=== PATIENT | female | born 1950 | race Caucasian/White ===

== ENCOUNTER 2019-02-13 17:13 | Inpatient (IN) | payer MEDICARE ==
[2019-02-14] MEDS: DESYREL PO PRN (01:31)
[2019-02-14 08:20] LABS: Basophils % (Auto) 0.4 % (0.0-1.8); Hematocrit 32.7 % (30.3-42.9); Hemoglobin 11.1 gm/dl (10.1-14.3); Lymphocytes # (Auto) 0.9 K/mm3 (1.2-5.4); Lymphocytes % (Auto) 29.4 % (13.4-35.0); Mean Corpuscular HGB Conc 34 % (30-34); Mean Corpuscular Volume 91 fl (79-97); Monocytes # (Auto) 0.3 K/mm3 (0.0-0.8); Monocytes % (Auto) 9.6 % (0.0-7.3); Platelet Count 177 K/mm3 (140-440); Red Blood Count 3.58 M/mm3 (3.65-5.03); Red Cell Distribution Width 17.8 % (13.2-15.2)
[2019-02-14 08:39] LABS: Alanine Aminotransferase 9 units/L (7-56); BUN/Creatinine Ratio 17; Blood Urea Nitrogen 12 mg/dL (7-17); Calcium 8.7 mg/dL (8.4-10.2); HDL Cholesterol 54 mg/dL (40-59); Hemolysis Index 14; LDL Cholesterol,Direct 14 mg/dL (50-130)
--- NOTE | 2019-02-14 08:51 | History and Physical Report ---
GP History & Physical - History of Present Illness Date of admission: 02/13/19 Date of Examination: 02/14/19 Reason for Admission: Danger to self, Severe anxiety/depression, Unable to care for self Chief Complaint: I took too much of my pain pills History of Present Illness: The patient is a 68yo retired female with history of MDD, Chronic pain, Fibromyalgia, Non-Alcoholic fatty liver disease with cirrhosis, Hepatic hydrothorax and HTN. She was transferred from [facility] for inpatient psychiatric treatment. [place] [facility] [place] secondary to opiate overdose. She was minimally responsive to stimulation and required intubation. In my interview with the patient, she states that she is here to "get my mind together". She admits to have overdosed on her pain pills as she was in so much pain and could no longer continue to live in pain. She reports feeling depressed and she continues to feel suicidal at present time. She has poor sleep. Appetite is average. She is focussed on getting her pain under control. She denies hallucinations, paranoia or homicidal thoughts. She reports taking Celexa for over 10 years and Gabapentin for over 3 years. Legal Status: Voluntary Patient Problems: Current Active Problems Chronic pain syndrome (Acute) Fibromyalgia (Acute) MDD (major depressive disorder), recurrent severe, without psychosis (Acute) Opioid use disorder, severe, dependence (Acute) Reaction to Hospitalization: Accepting Substance History - Substance History Drug Use: opiates, prescription drug abuse Hx Tobacco Use: No Alcohol Use: No Past psychiatric history - Past Medical History Past Medical History: arthritis, hepatitis, hypertension, liver disease - past Psychiatric treatment and history Psych: Depression psychiatric treatment history: No previous suicide attempt, inpatient psych admissions and no established outpatient care. She gets her psych meds from her PCP - Social History Social history: , lives with family, prescription drug abuse, other (Pt completed high school, retired, no legal problems and no access to guns.) Review of Systems All systems: negative Constitutional: weight loss, weakness, lethargy, chronic pain Psychiatric: insomnia, depression Results - Results Labs/Vitals: Laboratory Last Values WBC 3.1 K/mm3 (4.5-11.0) L 02/14/19 07:52 RBC 3.58 M/mm3 (3.65-5.03) L 02/14/19 07:52 Hgb 11.1 gm/dl (10.1-14.3) 02/14/19 07:52 Hct 32.7 % (30.3-42.9) 02/14/19 07:52 MCV 91 fl (79-97) 02/14/19 07:52 MCH 31 pg (28-32) 02/14/19 07:52 MCHC 34 % (30-34) 02/14/19 07:52 RDW 17.8 % (13.2-15.2) H 02/14/19 07:52 Plt Count 177 K/mm3 (140-440) 02/14/19 07:52 Lymph % (Auto) 29.4 % (13.4-35.0) 02/14/19 07:52 [place] % (Auto) 9.6 % (0.0-7.3) H 02/14/19 07:52 Eos % (Auto) 1.0 % (0.0-4.3) 02/14/19 07:52 Baso % (Auto) 0.4 % (0.0-1.8) 02/14/19 07:52 Lymph # 0.9 K/mm3 (1.2-5.4) L 02/14/19 07:52 [place] # 0.3 K/mm3 (0.0-0.8) 02/14/19 07:52 Eos # 0.0 K/mm3 (0.0-0.4) 02/14/19 07:52 Baso # 0.0 K/mm3 (0.0-0.1) 02/14/19 07:52 Seg Neutrophils % 59.6 % (40.0-70.0) 02/14/19 07:52 Seg Neutrophils # 1.8 K/mm3 (1.8-7.7) 02/14/19 07:52 POC Glucose 124 (70-105) H 02/13/19 22:39 Last Vital Signs Temp 98.4 F 02/13/19 22:34 Pulse 68 02/13/19 22:34 Resp 18 02/13/19 22:34 BP 135/51 02/13/19 22:34 Pulse Ox 96 02/13/19 22:34 Physical Examination - Constitutional Vitals: Vital Signs Temp Pulse Resp BP Pulse Ox 98.4 F 68 18 135/51 96 02/13/19 22:34 06/17/19 22:34 02/13/19 22:34 02/13/19 22:34 02/13/19 22:34 Temperature -Last 24 Hours Temperature 98.4 F General appearance: Present: no acute distress - EENT Eyes: Present: PERRL, EOM intact ENT: hearing intact, clear oral mucosa - Neck Neck: Present: supple, normal ROM - Respiratory Respiratory effort: normal Mental Status Exam - Vital signs Last Vital Signs Temp 98.4 F 02/13/19 22:34 Pulse 68 02/13/19 22:34 Resp 18 02/13/19 22:34 BP 135/51 02/13/19 22:34 Pulse Ox 96 02/13/19 22:34 - Exam Orientation: time, place, person Affect: depressed Mood: congruent with affect Thought Process: Intact Perceptions: none Speech: normal rate and pattern Concentration: focused Motor activity: lethargic Level of consciousness: alert Memory: Intact Sleep Symptoms: Insomnia Appetite: decreased Interaction: cooperative Assessment and Plan - Psychiatric problem (1) MDD (major depressive disorder), recurrent severe, without psychosis Current Visit: Yes Status: Acute (2) Opioid use disorder, severe, dependence Current Visit: Yes Status: Acute (3) Fibromyalgia Current Visit: Yes Status: Acute (4) Chronic pain syndrome Current Visit: Yes Status: Acute Physician Certification - Certification Statement Physician Certification Statement: This is an acknowledgement statement that WARREN DHILLON is a 68 year old F who requires inpatient psychiatric admission for treatment which could reasonably be expected to improve the patient's condition for Depression and suicidal thoughts Estimated period of time patient will need to remain in the hospital: 7 days Plan for post-hospital care: Outpatient care Plan Patient will be admitted for inpatient psychiatric evaluation, medication adjustment and close monitoring The patient's behavior, mood, sleep and appetite will be closely monitored. Patient will be enrolled in individual and group therapeutic sessions and encouraged to attend. Patient will be provided with a safe and structured environment. Patient's physical health needs will be addressed by the Hospitalist. Social Assessment will be completed and the Information Assoc will work with patient and family to ensure a suitable and safe disposition Medication adjustment will be made as clinically indicated Will not restart Citalopram. Will replace it with Cymbalta 30mg bid for depression and Fibromyalgia. Will resume Gabapentin at 300mg tid as patient reports benefitting for it Will start Mirtazapine 7.5mg qhs for depression, insomnia and appetite. The patient's son agreed on the treatment plan, understood the risk, benefit, alternative treatment, potential consequence of no treatment, and gave informed consent.
[2019-02-14] MEDS ORDERED: NORCO 10/325 PO PRN (09:15)
[2019-02-14] MEDS: LASIX PO SCH (09:29)
[2019-02-14] MEDS ORDERED: K-DUR PO NR (09:30)
[2019-02-14] MEDS ORDERED: NON-FORMULARY (Lasix Tab 20 MG) PO SCH (10:00)
[2019-02-14] MEDS ORDERED: NON-FORMULARY (Spironolactone 25 MG) PO SCH (10:00)
[2019-02-14] MEDS ORDERED: NON-FORMULARY (Pantoprazole 40 MG) PO SCH (10:00)
[2019-02-14] MEDS: CYMBALTA PO SCH ×2 (11:05→21:25)
[2019-02-14] MEDS: PROTONIX PO SCH (11:05)
[2019-02-14] MEDS: ALDACTONE PO SCH (11:05)
[2019-02-14] MEDS ORDERED: NON-FORMULARY (Baclofen 10 MG) PO SCH (14:00)
--- NOTE | 2019-02-14 14:05 | Consultation ---
History of Present Illness - Reason for Consult Consult date: 02/14/19 Hypertension, chronic liver disease Requesting physician: KOLE ADAMES - History of Present Illness Patient is 68 yo with depression, admitted to [facility]. The hospitalist service has been consulted for management of multiple medical co-morbidities. Patient has hypertension, chronic liver disease, cirrhosis. She is on multiple medications. She currently denies chest pain, shortness of breath or abdominal pain. Past History Past Medical History: arthritis, hepatitis, hypertension, liver disease, other (cirrhosis of liver) Social history: , lives with family, prescription drug abuse, other (Pt completed high school, retired, no legal problems and no access to guns.) Medications and Allergies Allergies Allergy/AdvReac Type Severity Reaction Status Date / Time prochlorperazine Allergy Severe Unknown Verified 02/14/19 11:04 [From Compazine] Home Medications Medication Instructions Recorded Confirmed Last Taken Type Baclofen 10 mg PO TID 02/13/19 02/13/19 02/13/19 History Lasix TAB 20 mg PO QDAY 02/13/19 02/13/19 02/13/19 History Pantoprazole 40 mg PO QDAY 02/13/19 02/13/19 02/13/19 History Spironolactone 25 mg PO QDAY 02/13/19 02/13/19 02/13/19 History Baclofen [Lioresal] 10 mg PO TID tablet 02/16/19 Unknown Rx DULoxetine [Cymbalta] 30 mg PO BID #60 capsule 02/16/19 Unknown Rx Furosemide [Lasix TAB] 20 mg PO QAM tablet 02/16/19 Unknown Rx Gabapentin [Neurontin] 300 mg PO Q8HR #90 capsule 02/16/19 Unknown Rx HYDROcodone/APAP 10-325 [[place] 1 each PO Q4H PRN tablet 02/16/19 Unknown Rx 10-325 mg TAB] Mirtazapine [Remeron 15mg TAB] 7.5 mg PO QHS #30 tablet 02/16/19 Unknown Rx Pantoprazole [Protonix TAB] 40 mg PO DAILY tablet 02/16/19 Unknown Rx Spironolactone [Aldactone] 25 mg PO QDAY tablet 02/16/19 Unknown Rx traZODone [Desyrel] 50 mg PO QHS PRN 30 Days tablet 02/16/19 Unknown Rx Active Meds: Active Medications Acetaminophen/Hydrocodone Bitart ([place] 10/325) 1 each PO Q4H PRN PRN Reason: Pain, Moderate (4-6) Baclofen (Lioresal) 10 mg PO TID [facility] Duloxetine HCl (Cymbalta) 30 mg PO BID [facility] Last Admin: 02/14/19 11:05 Dose: 30 mg Documented by: Furosemide (Lasix) 20 mg PO QAM [facility] Last Admin: 02/14/19 09:29 Dose: 20 mg Documented by: Gabapentin (Neurontin) 300 mg PO Q8HR [facility] Mirtazapine (Remeron) 7.5 mg PO QHS [facility] Pantoprazole Sodium (Protonix) 40 mg PO DAILY [facility] Last Admin: 02/14/19 11:05 Dose: 40 mg Documented by: Potassium Chloride (Potassium Chloride) 40 meq PO ONCE ONE Stop: 02/14/19 14:03 Spironolactone (Aldactone) 25 mg PO QDAY [facility] Last Admin: 02/14/19 11:05 Dose: 25 mg Documented by: Trazodone HCl (Desyrel) 50 mg PO QHS PRN PRN Reason: Insomnia Last Admin: 02/14/19 01:31 Dose: 50 mg Documented by: Review of Systems All systems: negative (no fever, no headache, no cough, no abdominal pain. All other systems reviewed and are negative) Exam - Physical Exam Narrative exam: Gen: Not in acute distress, Lying in bed HEENT: Normocephalic, atraumatic Neck: supple, no JVD Heart: S1 and S2 reg, no murmurs, rubs or gallop Lungs: Clear, no crackles, no wheeze Abd: soft, non tender, non distended, normal BS Ext: Bilateral leg edema less, no clubbing, no cyanosis, Neuro: Awake,alert, oriented x 3, moves all ext, non focal Psych:Normal mood - Constitutional Vitals: Temp Pulse Resp BP Pulse Ox 98.3 F 96 H 17 114/55 95 02/14/19 09:02 02/14/19 11:05 02/14/19 09:02 02/14/19 11:05 02/14/19 09:02 Results - Labs CBC & Chem 7: 02/14/19 07:52 02/16/19 08:14 Labs: Abnormal lab results 02/13/19 02/14/19 02/14/19 Range/Units 22:39 07:52 07:52 WBC 3.1 L (4.5-11.0) K/mm3 RBC 3.58 L (3.65-5.03) M/mm3 RDW 17.8 H (13.2-15.2) % [place] % (Auto) 9.6 H (0.0-7.3) % Lymph # 0.9 L (1.2-5.4) K/mm3 Potassium 3.2 L (3.6-5.0) mmol/L POC Glucose 124 H (70-105) Albumin 3.0 L (3.9-5) g/dL LDL Cholesterol Direct 14 L (50-130) mg/dL Assessment and Plan Depression. Patient admitted to [facility] Dr. Adames , attending Hypertension Monitor BP Cirrhosis of liver On Aldactone Stable Full code status Thanks for consulting us, Dr. Adames. Will follow.
[2019-02-14] MEDS: NEURONTIN PO SCH ×2 (14:52→21:26)
[2019-02-14] MEDS: LIORESAL PO SCH ×2 (14:52→21:25)
[2019-02-14] MEDS ORDERED: POTASSIUM CHLORIDE PO ONE (15:02)
[2019-02-14] MEDS: REMERON PO SCH (21:26)
[2019-02-15] MEDS: NEURONTIN PO SCH ×3 (06:29→21:20)
--- NOTE | 2019-02-15 08:38 | Progress Note ---
Subjective Date of service: 02/15/19 Principal diagnosis: Major depressive disorder recurrent severe w/o psychosis Subjective Comment: The patient is withdrawn and isolates in her room. She reports feeling tired this morning but denies SI/HI/AVH. She is compliant with her medications and denies side effect. Family meeting with spouse today - to discuss keeping her medication safe. Will plan to discharge in am tomorrow if she continues to improve. Objective - Criteria for Continued Treatment Criteria for Continued Treatment: Improving Level of Functioning, Reducing Isolative Behaviors, Stablizing Level of Functioning, Improving Emotional/Socia - Mental Status Mental Status: Alert - Objective Observation Participation Level: Moderate Assessment and Plan - Patient Problems (1) MDD (major depressive disorder), recurrent severe, without psychosis Current Visit: Yes Status: Acute (2) Opioid use disorder, severe, dependence Current Visit: Yes Status: Acute (3) Fibromyalgia Current Visit: Yes Status: Acute (4) Chronic pain syndrome Current Visit: Yes Status: Acute Plan to address problem: Patient will be admitted for inpatient psychiatric evaluation, medication adjustment and close monitoring The patient's behavior, mood, sleep and appetite will be closely monitored. Patient will be enrolled in individual and group therapeutic sessions and encouraged to attend. Patient will be provided with a safe and structured environment. Patient's physical health needs will be addressed by the Hospitalist. Social Assessment will be completed and the Shutdown Planner will work with patient and family to ensure a suitable and safe disposition Medication adjustment will be made as clinically indicated Citalopram was discontinued yesterday and replaced with Cymbalta 30mg bid for depression and Fibromyalgia. Will continue Gabapentin at 300mg tid as patient reports benefitting for it Will continue Mirtazapine 7.5mg qhs for depression, insomnia and appetite. The patient's son agreed on the treatment plan, understood the risk, benefit, alternative treatment, potential consequence of no treatment, and gave informed consent.
[2019-02-15] MEDS: LIORESAL PO SCH ×3 (09:18→19:55)
[2019-02-15] MEDS: CYMBALTA PO SCH ×2 (10:09→21:20)
[2019-02-15] MEDS: LASIX PO SCH (10:09)
[2019-02-15] MEDS: ALDACTONE PO SCH (10:09)
[2019-02-15] MEDS: PROTONIX PO SCH (10:10)
[2019-02-15 14:21] LABS: BUN/Creatinine Ratio 18; Blood Urea Nitrogen 14 mg/dL (7-17); Calcium 8.9 mg/dL (8.4-10.2); Hemolysis Index 13
[2019-02-15] MEDS: K-DUR PO SCH ×2 (16:37→19:54)
[2019-02-15] MEDS: REMERON PO SCH (21:20)
[2019-02-15] MEDS: DESYREL PO PRN (21:21)
[2019-02-16] MEDS: NEURONTIN PO SCH (05:41)
--- NOTE | 2019-02-16 08:04 | Discharge Summary ---
Providers - Providers Date of Admission: 02/13/19 20:50 Date of discharge: 02/16/19 Attending physician: KOLE ADAMES MD 02/14/19 07:31 Consult to Physician [CONS] Routine Comment: Consulting Provider: MARCELINO KITCHEN Physician Instructions: Reason For Exam: New Admit Primary care physician: YOGA INSTRUCTOR Hospitalization Reason for admission: Overdosed on pain medication Condition: Stable Hospital course: The patient was provided inpatient psychiatric treatment with safe and supportive environment, group therapy, individual counseling, psychiatric medication, medication adjustment, adverse effect monitor, medical evaluation, medical treatment, social service assessment, family/social support meeting, placement assessment and psycho-education. The patients mood, anxiety, thoughts, stress management skill, cognition, impulse/anger control, motivation, understanding of disease, compliance to treatment and appreciation on family/social support are improved and stabilized. At the time of discharge, the patient had no suicidal ideas, no homicidal ideas, no aggressive thoughts, no endangering behavior and no debilitating adverse effects. The patient agreed on the treatment plan, understood the risk, benefit, alternative treatment, potential consequence of no treatment, and gave informed consent. The patient was advised to be compliant with medications, not to use drugs and not to drink alcohol. The patient understands that if suicidal ideas, homicidal ideas, or any endangering thoughts arise, the patient should immediately seek for emergent assistance including but not limited to crisis hot line and emergency room. Follow up with out-patient Psychiatrist and PCP within 14 - 21 days of discharge. Disposition: TO HOME OR SELFCARE Time spent for discharge: 37 minutes Allergies/Adverse Reactions: Allergies prochlorperazine [From Compazine] Allergy (Severe, Verified 02/14/19 11:04) Unknown Vital Signs: Last Vital Signs Temp 98.0 F 02/15/19 20:14 Pulse 90 02/15/19 20:14 Resp 18 02/15/19 20:14 BP 126/56 02/15/19 20:14 Pulse Ox 97 02/15/19 20:14 Last Lab: Laboratory Last Values WBC 3.1 K/mm3 (4.5-11.0) L 02/14/19 07:52 RBC 3.58 M/mm3 (3.65-5.03) L 02/14/19 07:52 Hgb 11.1 gm/dl (10.1-14.3) 02/14/19 07:52 Hct 32.7 % (30.3-42.9) 02/14/19 07:52 MCV 91 fl (79-97) 02/14/19 07:52 MCH 31 pg (28-32) 02/14/19 07:52 MCHC 34 % (30-34) 02/14/19 07:52 RDW 17.8 % (13.2-15.2) H 02/14/19 07:52 Plt Count 177 K/mm3 (140-440) 02/14/19 07:52 Lymph % (Auto) 29.4 % (13.4-35.0) 02/14/19 07:52 [place] % (Auto) 9.6 % (0.0-7.3) H 02/14/19 07:52 Eos % (Auto) 1.0 % (0.0-4.3) 02/14/19 07:52 Baso % (Auto) 0.4 % (0.0-1.8) 02/14/19 07:52 Lymph # 0.9 K/mm3 (1.2-5.4) L 02/14/19 07:52 [place] # 0.3 K/mm3 (0.0-0.8) 02/14/19 07:52 Eos # 0.0 K/mm3 (0.0-0.4) 02/14/19 07:52 Baso # 0.0 K/mm3 (0.0-0.1) 02/14/19 07:52 Seg Neutrophils % 59.6 % (40.0-70.0) 02/14/19 07:52 Seg Neutrophils # 1.8 K/mm3 (1.8-7.7) 02/14/19 07:52 Sodium 139 mmol/L (137-145) 02/15/19 12:43 Potassium 3.1 mmol/L (3.6-5.0) L 02/15/19 12:43 Chloride 99.4 mmol/L (98-107) 02/15/19 12:43 Carbon Dioxide 26 mmol/L (22-30) 02/15/19 12:43 17 mmol/L 02/15/19 12:43 BUN 14 mg/dL (7-17) 02/15/19 12:43 0.8 mg/dL (0.7-1.2) 02/15/19 12:43 Estimated GFR > 60 ml/min 02/15/19 12:43 18 % 02/15/19 12:43 Glucose 186 mg/dL (65-100) H 02/15/19 12:43 POC Glucose 124 (70-105) H 02/13/19 22:39 5.8 % (4-6) 02/14/19 07:52 Calcium 8.9 mg/dL (8.4-10.2) 02/15/19 12:43 0.40 mg/dL (0.1-1.2) 02/14/19 07:52 AST 14 units/L (5-40) 02/14/19 07:52 ALT 9 units/L (7-56) 02/14/19 07:52 110 units/L (35-129) 02/14/19 07:52 6.7 g/dL (6.3-8.2) 02/14/19 07:52 3.0 g/dL (3.9-5) L 02/14/19 07:52 0.8 % 02/14/19 07:52 Triglycerides 73 mg/dL (2-149) 02/14/19 07:52 Cholesterol 81 mg/dL (50-199) 02/14/19 07:52 14 mg/dL (50-130) L 02/14/19 07:52 54 mg/dL (40-59) 02/14/19 07:52 1.50 % 02/14/19 07:52 - Discharge Diagnoses (1) MDD (major depressive disorder), recurrent severe, without psychosis Status: Acute (2) Opioid use disorder, severe, dependence Status: Acute (3) Fibromyalgia Status: Acute (4) Chronic pain syndrome Status: Acute Core Measure Documentation - Palliative Care Palliative Care/ Comfort Measures: Not Applicable - Core Measures Any of the following diagnoses?: none - VTE Discharge Requirements Deep Vein Thrombosis/Pulmonary Embolism Present on Admission: No Has pt received <5 days of overlap therapy or INR<2.0: No Anticoagulant overlap therapy prescribed at discharge: No Contraindication No Overlap Therapy order at DC: Not Indicated Exam - Constitutional Vitals: Temp Pulse Resp BP Pulse Ox 98.0 F 90 18 126/56 97 02/15/19 20:14 02/15/19 20:14 02/15/19 20:14 02/15/19 20:14 02/15/19 20:14 General appearance: Present: no acute distress - EENT Eyes: Present: PERRL, EOM intact ENT: hearing intact, clear oral mucosa - Neck Neck: Present: supple, normal ROM - Respiratory Respiratory effort: normal Plan Activity: no restrictions Weight Bearing Status: Full Weight Bearing Diet: regular Follow up with: PRIMARY CARE,MD [Primary Care Provider] - 7 Days Prescriptions: traZODone [Desyrel] 50 mg PO QHS PRN 30 Days tablet PRN Reason: Insomnia Mirtazapine [Remeron 15mg TAB] 7.5 mg PO QHS #30 tablet DULoxetine [Cymbalta] 30 mg PO BID #60 capsule Gabapentin [Neurontin] 300 mg PO Q8HR #90 capsule
[2019-02-16] MEDS: LIORESAL PO SCH (08:39)
[2019-02-16 09:21] LABS: BUN/Creatinine Ratio 24; Blood Urea Nitrogen 17 mg/dL (7-17); Calcium 8.8 mg/dL (8.4-10.2); Hemolysis Index 1
[2019-02-16 09:29] VITALS: BP 117/69
[2019-02-16] MEDS: ALDACTONE PO SCH (09:30)
[2019-02-16] MEDS: PROTONIX PO SCH (09:30)
[2019-02-16] MEDS: CYMBALTA PO SCH (09:30)
[2019-02-16] MEDS: LASIX PO SCH (09:30)
== END 2019-02-16 11:00 | disposition home or self-care (01) | DRG 885 ==
LOC: 3A 17:13 → UNDOADMIN 17:13 → 5A 20:50
PROVIDERS: ADMIT Psychiatry & Neurology Psychiatry; ATTEND Psychiatry & Neurology Psychiatry
DX: F33.2 Major depressive disorder, recurrent severe without psychotic features (principal); F11.288 Opioid dependence with other opioid-induced disorder; K75.81 Nonalcoholic steatohepatitis (NASH); K74.60 Unspecified cirrhosis of liver; I10 Essential (primary) hypertension; M79.7 Fibromyalgia; G89.4 Chronic pain syndrome; Z71.51 Drug abuse counseling and surveillance of drug abuser; Z88.8 Allergy status to other drugs, medicaments and biological substances
CPT/HCPCS: 36415; 80048; 80053; 80061; 82962; 83036; 85025; G0378